=== PATIENT | male | born 1970 | race Caucasian/White ===

== ENCOUNTER 2024-08-12 08:14 | Day surgery (SDC) | payer OTHER, SELFPAY ==
[2024-07-28 08:56] VITALS: BMI 25.8
--- NOTE | 2024-08-12 07:00 | PM.HPGS ---
History of Present Illness History of Present Illness Chief complaint: Dupuytren's Contracture Right Small Finger Narrative: Patient seen and examined in pre-operative holding area. No interval change in medical history or symptoms. Patient recalls previous discussion of benefits and alternatives to procedure. Continues to desire to proceed with right small finger fasciectomy . Reviewed procedure, post-op expectations and risks including but not limited to bleeding, infection, injury to tendon/nerve/vessel, decreased hand function, stiffness, RSD, no change or worsening of symptoms, recurrence, incomplete release. I discussed the possible use of assistants and their participation in the case. Patient stated understanding and signed the consent form wishing to proceed. Review of Systems Review of Systems: All systems reviewed & are unremarkable except as noted in HPI and below PMFSH Social History Social History Smoking status: Never smoker Tobacco type: e-cigarettes/vaping Substance use: current Substance use type: marijuana Living arrangements: with family Spiritual care concerns: No Meds Home Medications and Allergies Home Medications ?Medication ?Instructions ?Recorded ?Confirmed ?Type clonazepam 0.5 mg tablet 0.5 mg PO .Q24 anxiety 07/28/24 08/12/24 History metoprolol succinate 50 mg 50 mg PO .q24 07/28/24 08/12/24 History tablet,extended release 24 hr Allergies Allergy/AdvReac Type Severity Reaction Status Date / Time No Known Allergies Allergy Verified 08/12/24 10:32 Exam Narrative: unchanged Assessment and Plan Assessment and plan (1) Dupuytren contracture: Code(s): M72.0 - Palmar fascial fibromatosis [Dupuytren] Status: Acute Assessment and Plan: cont as above
--- NOTE | 2024-08-12 07:01 | P.OP_ITS ---
Procedure Note - Detailed Date of Procedure 08/12/24 Pre-op Diagnosis Dupuytren's Contracture Right Small Finger Post-op Diagnosis Same Procedure Performed right small finger fasciectomy Surgeon Abdon Viveros MD Staple Laster joshua hernandez pa-c Anesthesia MAC Description of Procedure INFORMED CONSENT: The patient was seen and examined and marked in the pre-op area.? The patient signed the consent form. PROCEDURE IN DETAIL:The patient taken back to OR on the stretcher in supine pos ition. Time out performed with anesthesia, surgeon and staff agreeing on patient's name site and surgery to be performed SCDs were placed on the lower extremities and inflated. A tourniquet was placed on {right} upper extremity and antibiotics given IV After anesthesia administered sedation I injected {4}cc 1%lido and 0.5% marcaine plain at the operative site The?{right upper extremity}?was prepped and draped in sterile fashion the??{right upper extremity} was? exsanguinated with Esmarch bandage and tourniquet inflated to 250mmHg I proceeded with making a longitudinal incision over the right small finger cord from the palm past the PIP joint going obliquely across flexion creases through skin and dermis with a 15 blade scalpel. Littler scissors were used to spread through subcutaneous tissue identifying the cord near its origin in the palm and I proceeded with circumferential dissection of the cord. The cord was transected and then I proceeded with anterograde dissection of this cord until I was able to achieve full extension of the MP and PIP joint. The neurovascular bundle was identified and protected throughout the procedure. At the level of the PIP joint there was a Dupuytren's nodule that appeared to be in most encasing the radial digital nerve and resulted in subtotal excision of affected cord but did not affect the ability to achieve extension of the PIP joint. I irrigated with saline. Closure was done with 4-0 chromic. A dressing of xeroform, 4x4, judie, and an ulnar gutter splint in straight positionwas applied for patient safety, security, and comfort and secured with an gurwinder bandage after the tourniquet was let down noting the hand was warm and well perfused. The patient was then awaken from anesthesia and transferred to the recovery room in stable condition.? Complications - none EBL- 0cc Disposition - home in stable conditions joshua hernandez pa-c was essential for positioning, retraction, closure and dressing placement [facility] Billing Surgery - Charge Forward: Surgery Billing ([id number] for joshua)
--- OUTSIDE RECORDS SUMMARY | 2024-08-12 10:26 | XMS_ITS | Continuity of Care Document ---
Author Organization [facility] Address [address] [facility] [place] [address] Phone Care Team Providers Care Rejected Items Clerk Name Role Phone Romeo Richardson MD Unavailable Unavailable Allergies, Adverse Reactions, Alerts Substance Reaction Status Criticality No Known Allergies Active No Inform ation Medications Medication Instructions Dosage Effective Dates (start - stop) Status Comments Cimarron 5 mg-325 mg tablet take 1 tablet by oral route 2 times every day as needed for pain 1 tablet - Active avoid driving or operate machines Paxil 20 mg tablet take 1 tablet (20MG) by oral route every day 20 MG - Active buspirone 10 mg tablet take 1 tablet (10MG) by oral route 2 times every day 10 MG - Active avoid driving or operate machines Procedures Procedure Date OFFICE/OUTPATIENT VISIT, [facility] Advance Directives Directive Yes / No Effective Date File Name No Information Encounters Encounter Description Practice Location Reason(s) For Visit Diagnoses Date Provider Providers Copied on Encounter OFFICE/OUTPAT IENT VISIT, [facility], [address] [place], [place], [id number], tel:[phone] [facility] hand pain (chief complaint) anxiety (chief complaint) Pain in joint involving handGeneralized anxiety disorder [address] Walters. [address] [place], [id number] , [place]. tel:[phone] Family History Family Member Type Diagnosis Age At Onset Sister Problem (finding) Anxiety Problem (finding) Family history of hypot hyroidism Mother Problem (finding) Hypertension Problem (finding) No family history of An xiety Father Problem (finding) Unknown Disease Payers Payer name Insurance type Covered democrat ID Heather rios(s) No Information Social History Type Description Quantity Date Captured Comments Alcohol Use Details No Caffeine Use Details Unknown Tobacco Use Status No Information Smoking Status Current every day smoker Smoking Tobacco Use Details Cigarette: No Details Available Cigarette: 1 Packs per day Sex Male Vital Signs Date / Time: Height Weight BMI Pulse Rate Blood Pressure Temperature Respiratory Rate Body Surface Area Head Circumference BMI percentile Pulse Ox Inhaled Ox 3:26 PM 70.50 in 178.00 lbs 25.1 8 kg/m eter (2) 103 /min 128/72 mm[Hg] 98.1 F 18 /min Chief Complaint And Reason For Visit From encounter dated '08/27/2013 14:54'. hand pain (chief complaint) anxiety (chief complaint) Plan Of Treatment Date Type Action Status Goal Tobacco cessation counseling completed History Of Present Illness Encounter Date Complaint History Of Prese nt Illness No Information Instructions Date Instruction Additional Infor mation No Information Assessments Type Assessment Date No Information Mental Status Date Cognitive Assessment Orientation - [place] ed to time, place, person, situation.
--- OUTSIDE RECORDS SUMMARY | 2024-08-12 10:26 | XMS_ITS | Continuity of Care Document ---
[facility] Organization [facility] Address [address] [place] [address] [place] [address] Phone Care Team Providers Care Airfreight Loading Supervisor Name Role Phone Romeo Richardson MD Unavailable Unavailable Allergies, Adverse Reactions, Alerts Substance Reaction Status Criticality No Known Allergies Active No Inform ation Medications Medication Instructions Dosage Effective Dates (start - stop) Status Comments Klonopin 0.5 mg tablet take 1 tablet by oral route once per day PRN for anxiety as needed - Active avoid driving or operate machines Toprol XL 50 mg tablet,extended release take 1 tablet by oral route every day 50 MG - Active sildenafil 50 mg tablet take 1 tablet by oral route every day as directe as needed 50 MG - Active take one or ally about one hour before activity, max 1/24 hours Procedures Procedure Date PREV VISIT, EST, AGE 40-64 OFFICE/OUTPATIENT VISIT, EST OFFICE/OUTPATIENT VISIT, EST OFFICE/OUTPATIENT VISIT, EST OFFICE/OUTPATIENT VISIT, EST OFFICE/OUTPATIENT VISIT, EST OFFICE/OUTPATIENT VISIT, EST OFFICE/OUTPATIENT VISIT, EST OFFICE/OUTPATIENT VISIT, EST OFFICE/OUTPATIENT VISIT, EST OFFICE/OUTPATIENT VISIT, EST OFFICE/OUTPATIENT VISIT, EST OFFICE/OUTPATIENT VISIT, EST OFFICE/OUTPATIENT VISIT, EST OFFICE/OUTPATIENT VISIT, EST OFFICE/OUTPATIENT VISIT, EST OFFICE/OUTPATIENT VISIT, EST PREV VISIT, [facility], AGE 40-64 OFFICE/OUTPATIENT VISIT, [facility] Advance Directives Directive Yes / No Effective Date File Name No Information Encounters Encounter Description Practice Location Reason(s) For Visit Diagnoses Date Provider Providers Copied on Encounter PREV VISIT, [facility], AGE 40-64 [facility], [address], [place], [place], [address], [place] tel:[phone] [facility] physical (chief complaint) Encounter for general adult medical examination without abnormal findings 5 Dylan Walters. [address], [place], [place], [address] , [place]. tel:[phone] OFFICE/OUTPA TIENT VISIT, [facility], [address], [place], [place], [address], [place] tel:[phone] [facility] HTN (chief complaint) hand1 (chief complaint) anxiety1 (chief complaint) Generalized Anxiety DisorderDupuytren's contracture 5 Dylan Walters. [address], [place], [place], [address] , [place]. tel:[phone] OFFICE/OUTPA TIENT VISIT, [facility], [address], [place], [place], [address], [place] tel:[phone] [facility] anxiety1 (chief complaint) premature1 (chief complaint) Generalized Anxiety DisorderPremature ejaculation 5 Dylan Walters. [address], [place], [place], [address] , [place]. tel:[phone] OFFICE/OUTPA TIENT VISIT, [facility], [address], [place], [place], [address], [place] tel:[phone] [facility] lung nodule1 (chief complaint) premature1 (chief complaint) anxiety1 (chief complaint) HSV1 (chief complaint) finger1 (chief complaint) Solitary lung noduleGeneralized Anxiety DisorderHerpes simplex infectionDupuytren' s contracturePrematur e ejaculationEncounte r for screening for malignant neoplasm of colon 5 Dylan Walters. [address], [place], [place], [address] , [place]. tel:[phone] OFFICE/OUTPA TIENT VISIT, [facility], [address], [place], [place], [address], [place] tel:[phone] [facility] anxiety1 (chief complaint) Premature1 (chief complaint) HSVII (chief complaint) Generalized Anxiety DisorderPremature ejaculationTobacco useHerpes simplex infection Mar-3 0- 4 Dylan Walters. [address], [place], [place], [address] , [place]. tel:[phone] OFFICE/OUTPA TIENT VISIT, [facility], [address], [place], [place], [address], [place] tel:[phone] [facility] ED (chief complaint) anxiety1 (chief complaint) tobacco1 (chief complaint) Generalized Anxiety DisorderTobacco useMale erectile dysfunction, unspecified Mar-0 2 4 Dylan Walters. [address], [place], [place], [address] , [place]. tel:[phone] OFFICE/OUTPA TIENT VISIT, [facility], [address], [place], [place], [address], [place] tel:[phone] [facility] anxiety1 (chief complaint) Generalized Anxiety DisorderTobacco use Feb-0 4 Richardson Romeo. [address], [place], [place], [address] , [place]. tel:[phone] OFFICE/OUTPA TIENT VISIT, [facility], [address], [place], [place], [address], [place] tel:[phone] [facility] anxiety1 (chief complaint) ED (chief complaint) Generalized Anxiety DisorderMale erectile dysfunction, unspecified Jan-0 4 Dylan Walters. [address], [place], [place], [address] , [place]. tel:[phone] OFFICE/OUTPA TIENT VISIT, [facility], [address], [place], [place], [address], [place] tel:[phone] [facility] anxiety1 (chief complaint) Generalized Anxiety Disorder 4 Dylan Walters. [address], [place], [address] , [place]. [phone] OFFICE/OUTPA TIENT VISIT, [facility], [address], [place], [place], [address], [place] [phone] [facility] anxiety1 (chief complaint) ED (chief complaint) Generalized Anxiety DisorderMale erectile dysfunction, unspecified 4 Dylan Walters. [address], [place], [place], [address] , [place]. [phone] OFFICE/OUTPA TIENT VISIT, [facility], [address], [place], [place], [address], [place] tel:[phone] [facility] anxiety1 (chief complaint) Generalized Anxiety DisorderTobacco use 4 Dylan Walters. [address], [place], [place], [address] , [place]. [phone] OFFICE/OUTPA TIENT VISIT, [facility], [address], [place], [place], [address], [place] tel:[phone] [facility] anxiety1 (chief complaint) ED (chief complaint) Generalized Anxiety DisorderMale erectile dysfunction, unspecified 4 Dylan Walters. [address], [place], [place], [address] , [place]. [phone] OFFICE/OUTPA TIENT VISIT, [facility], [address], [place], [place], [address], [place] tel:[phone] [facility] HTN (chief complaint) HTN (chief complaint) ED (chief complaint) weight loss1 (chief complaint) Abnormal weight lossGeneralized Anxiety DisorderEssential (primary) hypertensionMale erectile dysfunction, unspecified 4 Dylan Walters. [address], [place], [place], [address] , [place]. tel:[phone] OFFICE/OUTPA TIENT VISIT, [facility], [address], [place], [place], [address], [place] tel:[phone] [facility] anxiety1 (chief complaint) ED (chief complaint) Generalized Anxiety DisorderMale erectile dysfunction, unspecified 4 Dylan Walters. [address], [place], [place], [address] , [place]. tel:[phone] OFFICE/OUTPA TIENT VISIT, [facility], [address], [place], [place], [address], [place] tel:[phone] [facility] anxiety1 (chief complaint) fatigue1 (chief complaint) tobacco1 (chief complaint) FatigueGeneralized Anxiety DisorderEncntr screen for malignant neoplasm of respiratory organsDecreased libido 4 Dylan Walters. [address], [place], [place], [address] , [place]. [phone] OFFICE/OUTPA TIENT VISIT, [facility], [address], [place], [place], [address], [place] tel:[phone] [facility] HTN (chief complaint) anxiety1 (chief complaint) fatigue1 (chief complaint) Essential (primary) hypertensionGeneral ized Anxiety DisorderFatigueDecr eased libido 4 Dylan Walters. [address], [place], [place], [address] , [place]. tel:[phone] OFFICE/OUTPA TIENT VISIT, [facility], [address], [place], [place], [address], [place] tel:[phone] [facility] glucose1 (chief complaint) HLP (chief complaint) HTN (chief complaint) anxiety1 (chief complaint) Generalized Anxiety DisorderEssential (primary) hypertensionHypergl ycemiaMixed hyperlipidemia 4 Richardson Romeo. [address], [place], [place], [address] , [place]. tel:[phone] PREV VISIT, NEW, AGE 40-64 [facility], [address], [place], [place], [address], [place] tel:[phone] [facility] physical (chief complaint) Encounter for general adult medical exam w abnormal findingsEssential (primary) hypertensionGeneral ized Anxiety DisorderDupuytren's contracture 3 Dylan Romeo. [address], [place], [place], [address] , [place]. tel:[phone] Family History Family Member Type Diagnosis Age At Onset Mother Problem Thyroid disorder Sister Problem Alive and well Father Problem Alive and well Mother Problem Hypertension Payers Payer name Insurance type Covered green party ID Heather rios(s) [facility] CI [id number] Social History Type Description Quantity Date Captured Comments Alcohol Use Details No Caffeine Use Details Unknown Tobacco Use Status Ex-cigarette smoker 025 Smoking Status Former smoker Sex Male Vital Signs Date / Time: Height Weight BMI Pulse Rate Blood Pressure Temperature Respiratory Rate Body Surface Area Head Circumference BMI percentile Pulse Ox Inhaled Ox 11:42 AM 71.00 in 180.60 lbs 25.1 9 kg/m eter (2) 57 /min 110/70 mm[Hg] 97.9 F 16 /min Chief Complaint And Reason For Visit From encounter dated '07/26/2024 11:22'. physical (chief complaint). Description: Pt needs annual physical. Pt has chronic anxiety Pt deniesany depression or any suicidal or homicidal thought Pt denies any crying spells pt has HTN. Pt takes toprol and his bp is ok Pt has ED Pt doing ok with sildenafil PRn .Pt has lung nodule. Pt denies any hemoptysis, sob or cough. pt c/o intermittent left side neck pain for several months Pt denies any injury pt denies any radiculopathy or any weakness or paresthesia. Plan Of Treatment Date Type Action Status Referral Ordered: COLONOSCOPY AND BIOPSY ordered Referral Ordered: Abdon Viveros -[facility] : Plastic Surgery (related to Dupuytren's contracture) ordered Referral Referred To: Abdon Viveros [address], [place], [phone] Ordered: Referrals: [facility] : Plastic Surgery. Abdon Viveros. Evaluate and treat ordered Referral Ordered: CT THORAX W/O DYE ordered Referral Ordered: SLEEP STUDY, ATTENDED ordered Appointment [facility] History Of Present Illness Encounter Date Complaint History Of Prese nt Illness physical Pt needs annual physical. Pt has chronic anxiety Pt denies any depression or any suicidal or homicidal thought Pt denies any crying spells pt has HTN. Pt takes toprol and his bp is ok Pt has ED Pt doing ok with sildenafil PRn .Pt has lung nodule. Pt denies any hemoptysis, sob or cough. pt c/o intermittent left side neck pain for several months Pt denies any injury pt denies any radiculopathy or any weakness or paresthesia. HTN Pt has HTN Pt ta kes toprol and his bp is ok hand1 Pt has Dupuytren contracture of right hand and he will do surgery soon by hand doctor anxiety1 Pt has chronic a nxiety Pt denies any depression or any suicidal or homicidal thought Pt denies any crying spells anxiety1 Pt has chronic m ild anxiety and depression Pt takes paxil and klonopin PRN and doing ok Pt denies any suicidal or homicidal thought Pt denies any crying spells premature1 Pt has premature ejaculation Pt only takes paxil PRn which works ok Pt also takes sildenafil PRN for ED .Pt denies any testicular pain, atrophy or nodule lung nodule1 Pt has lung nodu le. Pt denies any hemoptysis, sob or cough Pt has mild COPD. premature1 Pt has ED and pr emature ejaculation Pt is on paxil for the past month and he has not noticed much improvement of premature ejaculations. Pt has ED Pt is on sildenafil PRN anxiety1 pt has chronic a nxiety. Pt denies any depression or any suicidal or homicidal thought Pt denies any crying spells pt is doing ok with paxil and klonopin PRN HSV1 Pt does not have HSV II on lab. 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 Pt states that he has occasional break out and he had 2-3 times for the last two years Pt denies any acute breakout anxiety1 Pt has chronic a nxiety Pt denies any depression or any suicidal or homicidal thought Pt denies any crying spells Pt takes klonopin PRN and doing ok Premature1 Pt has ED and pr emature ejaculation Pt is interested in paxil. Pt denies any testicular pain, atrophy or nodule anxiety1 Pt has chronic a nxiety Pt denies any depression or any suicidal or homicidal thought Pt denies any crying spells Pt takes klonopin PRN and doing ok tobacco1 Pt has 30 pack y ear tobacco history Pt denies any hemoptysis. sob or cough ED Pt has ED Pt denise es sildenafil PRN and doing ok. pt needs it refilled. anxiety1 Pt has chronic a nxiety Pt denies any depression or any suicidal or homicidal thought Pt denies any crying spells Pt takes klonopin PRN and doing ok anxiety1 Pt has chronic a nxiety Pt denies any depression or any suicidal or homicidal thought Pt denies any crying spells Pt takes klonopin PRN and doing ok ED Pt has ED Pt doi ng ok with sildenafil PRn anxiety1 Pt has chronic a nxiety Pt denies any depression or any suicidal or homicidal thought Pt denies any crying spells Pt takes klonopin PRN and doing ok ED Pt has ED Pt doi ng ok with sildenafil PRN Pt denies any chest pain with sex anxiety1 Pt has chronic a nxiety Pt denies any depression or any suicidal or homicidal thought Pt denies any crying spells Pt takes klonopin PRN and doing ok anxiety1 Pt has chronic a nxiety Pt denies any depression or any suicidal or homicidal thought Pt denies any crying spells Pt takes klonopin PRN and doing ok ED Pt has ED Pt doi ng ok with sildenafil PRN. Pt denies any chest pain with sex Pt denies any side effects. Pt denies any testicular pain, atrophy or nodule .Pt has good libido anxiety1 Pt has chronic a nxiety Pt denies any depression or any suicidal or homicidal thought Pt denies any crying spells Pt takes klonopin PRN and doing ok weight loss1 Pt has been inte ntionally losing weight with diet and exercise. Pt denies any nausea, vomiting appetite loss, change of bowel blood in stool, early satiety, abd pain, etc HTN Pt has HTN Pt ta kes toprol and his bp is stable .Pt needs it refilled. ED Pt has ED Pt doi ng ok with sildenafil PRN. Pt denies any chest pain with sex Pt denies any side effects HTN Pt has chronic a nxiety Pt denies any depression or any suicidal or homicidal thought Pt denies any crying spells Pt takes klonopin PRN and doing ok ED Pt has ED Pt den ies any testicular pain, atrophy or nodule pt has good libido. Pt used to take sildenafil PRN which worked well Pt wants to try sildenafil PRn again anxiety1 Pt has chronic a nxiety Pt denies any depression or any suicidal or homicidal thought Pt denies any crying spells Pt takes klonopin PRN and doing ok tobacco1 Pt quit smoking 4 years ago He has 30 pack year tobacco history .Pt denies any hemoptysis, sob or cough. anxiety1 Pt has chronic a nxiety Pt denies any depression or any suicidal or homicidal thought Pt denies any crying spells Pt takes klonopin PRN and doing ok fatigue1 Pt feels chronic fatigue with decreasing stamina and decreasing muscle mass Pt has been working out recently but he is not getting the result. pt has slightly decreased libido with mild ED as well Pt denies any testicular pain, atrophy or nodule. pt does snore at night. pt had testosterone level done which was normal. Pt changed his mind and he deferred sleep study anxiety1 Pt has chronic a nxiety Pt denies any depression or any suicidal or homicidal thought Pt denies any crying spells Pt takes klonopin PRN and doing ok HTN Pt has HTN Pt ta kes toprol 50 mg daily and his bp is ok. fatigue1 Pt feels chronic fatigue with decreasing stamina and decreasing muscle mass Pt has been working out recently but he is not getting the result. pt has slightly decreased libido with mild ED as well Pt denies any testicular pain, atrophy or nodule. pt does snore at night. anxiety1 Pt has chronic a nxiety .Pt denies any depression or any suicidal or homicidal thought Pt denies any crying spells. Pt doing ok with klonopin PRN HTN Pt states tat he has been checking his bp at home on toprol 50 mg and has been around 130/70. He is not sure why his bp was elevated during his last office visit he has been taking toprol 50 mg instead of 100 HLP Pt has mildly hi gh tg Pt is not on any diet glucose1 Pt has mildly hi gh glucose .Pt denies any polyuria, polydipsia . physical Pt needs annual physical. pt has chronic anxiety. Pt denies any depression or any suicidal or homicidal thought .Pt denies any crying spells Pt used to take klonopin until his incarceration due to DUI two years ago Pt has been taking buspar while incarceration but it does not help his anxiety Pt also has HTN Pt is on toprol XL 50 mg daily but his bp is still high Pt states that he has a lot of anxiety. Pt denies any chest ashley or headache. Pt c/o hard nodule palm of right hand and puling his right small ring finger to a flexed position ,Pt denies any injury Pt denies any pain or numbness or weakness of the hand . Instructions Date Instruction Additional Infor mation No Information Assessments Type Assessment Date assessment Encounter for genera l adult medical examination without abnormal findings Mental Status Date Cognitive Assessment Orientation - [place] ed to time, place, person, situation.
[2024-08-12 10:42] VITALS: BP 123/81; PULSE 60; RESP 18; TEMP 36.8; O2SAT 100; BMI 24.6
--- NOTE | 2024-08-12 12:17 | WPDANESEPPF ---
Anes - Initial Pre Proc Eval Procedure: Operation Date: 08/12/24 12:00 Proposed Procedures p Fasciectomy Right Small Finger - Abdon Viveros MD Date/Time: 08/12/24 12:17 Surgeon: Abdon Viveros MD Pre Op Diagnosis: Dupuytren's Contracture Right Small Finger Patient Data Age: 54 Gender: M Height: 1.8 m Weight: 80.2 kg Last Vital Signs Temp 36.8 C 08/12/24 10:42 Pulse 60 08/12/24 10:42 Resp 18 08/12/24 10:42 BP 123/81 08/12/24 10:42 Pulse Ox 100 08/12/24 10:42 O2 Del Method Room Air 08/12/24 10:42 Allergies Allergy/AdvReac Type Severity Reaction Status Date / Time No Known Allergies Allergy Verified 08/12/24 10:32 Home Medications ?Medication ?Instructions ?Recorded ?Confirmed ?Type clonazepam 0.5 mg tablet 0.5 mg PO .Q24 anxiety 07/28/24 08/12/24 History metoprolol succinate 50 mg 50 mg PO .q24 07/28/24 08/12/24 History tablet,extended release 24 hr Patient hx anesthesia problems: none Family hx anesthesia problems: none Results Review: All pre-operative results and documents have been reviewed as part of the pre-operative evaluation. [facility] Social History Social History Smoking status: Never smoker Tobacco type: e-cigarettes/vaping Substance use: current Substance use type: marijuana Living arrangements: with family Spiritual care concerns: No Anes - Eval Final PreProcedure Day of Procedure 08/12/24 12:17 Patient weight: normal Heart: regular rate and rhythm Lungs: clear to auscultation Airway: Mallampati scale class II Neurological: alert and oriented Last oral intake: >/= 8 hours ASA classification: II Emergent: no Anesthetic plan: proceed Anesthesia type and monitoring: general GIVS and standard monitoring Results Review: All pre-operative results and documents have been reviewed as part of the pre-operative evaluation. Informed Consent: The patient's anesthetic plan and its attendant risks and benefits were discussed with the patient/family/POA. Questions were solicited and answers provided to the satisfaction of the patient/family/POA.
[2024-08-12] MEDS: LACTATED RINGERS 1,000 ML 30 ML IV CONT (12:22)
[2024-08-12] MEDS: ceFAZolin SODIUM 2 GM/20 ML SW SYRINGE IV PUSH (12:22)
[2024-08-12] MEDS: BUPivacaine HCL 0.5% 10 ML AMP 3 ML INFILTRATE (12:29)
[2024-08-12] MEDS: LIDOCAINE 1% LOCAL INJ 10 ML VIAL 3 ML INFILTRATE (12:29)
[2024-08-12 12:55] VITALS: BP 96/71; PULSE 61; RESP 16; O2SAT 99
[2024-08-12 13:05] VITALS: BP 107/77; PULSE 68; RESP 16; O2SAT 96
[2024-08-12 13:15] VITALS: BP 106/88; PULSE 65; RESP 17; O2SAT 97
--- NOTE | 2024-08-12 13:20 | WPDANESPN ---
Anes - Prog Note Post-Op Date/Time: 08/12/24 13:20 Cardiovascular status: normal Respiratory status: normal Airway patency: baseline Mental status: baseline Post-Op hydration status: normal Vital Signs: Last Vital Signs Temp 36.8 C 08/12/24 10:42 Pulse 68 08/12/24 13:05 Resp 16 08/12/24 13:05 BP 107/77 08/12/24 13:05 Pulse Ox 96 08/12/24 13:05 O2 Del Method Room Air 08/12/24 13:05 Pain Score (VAS): 0 I/O: Intake & Output 08/11/24 08/12/24 08/12/24 23:59 07:59 15:59 Intake Total 750 Balance 750 Patient Feedback: Patient satisfied with anesthetic care.
== END 2024-08-12 13:35 | disposition home or self-care (01) ==
PROVIDERS: PCP Emergency Medicine; Visit Provider Plastic Surgery
PROC: (CPT 26045; principal; 2024-08-12 12:00)
DX: M72.0 Palmar fascial fibromatosis [Dupuytren] (principal)
CPT/HCPCS: 26123

== ENCOUNTER 2024-08-12 08:31 | Outpatient (NON) | payer OTHER, SELFPAY ==
--- OUTSIDE RECORDS SUMMARY | 2024-08-13 08:33 | XMS_ITS | Continuity of Care Document ---
Author Organization [facility] [place] [facility] Address [address] [place] [address] Phone Care Team Providers Care Inclusion Specialist Name Role Phone Romeo Richardson MD Unavailable Unavailable Allergies, Adverse Reactions, Alerts Substance Reaction Status Criticality No Known Allergies Active No Inform ation Medications Medication Instructions Dosage Effective Dates (start - stop) Status Comments [place] 5 mg-325 mg tablet take 1 tablet [...] operate machines Procedures Procedure Date OFFICE/OUTPATIENT VISIT, [facility] Advance Directives Directive Yes / No Effective Date File Name No Information Encounters Encounter Description Practice Location Reason(s) For Visit Diagnoses Date Provider Providers Copied on Encounter OFFICE/OUTPAT IENT VISIT, [facility], [address] [place], [place], [id number], tel:[phone] [facility] hand pain (chief complaint) anxiety (chief complaint) Pain in joint involving handGeneralized anxiety disorder 4 Dylan Walters. [address] [place], [place], [address] , [place]. tel:[phone] Family History Family Member Type Diagnosis Age At Onset Sister Problem (finding) Anxiety Problem (finding) Family history of hypot hyroidism Mother Problem (finding) Hypertension Problem (finding) No family history of An xiety Father Problem (finding) Unknown Disease Payers Payer name Insurance type Covered republican ID Heather rios(s) No Information Social History [...] Mental Status Date Cognitive Assessment Orientation - [place] ed to time, place, person, situation.
--- OUTSIDE RECORDS SUMMARY | 2024-08-13 08:33 | XMS_ITS | Continuity of Care Document ---
Author Organization [facility] Address [address] [place] [address] [place] [address] Phone Care Team Providers Care Dough Machine Operator Name Role Phone Romeo Richardson MD Unavailable [...] VISIT, EST OFFICE/OUTPATIENT VISIT, EST PREV VISIT, [facility], AGE 40-64 OFFICE/OUTPATIENT VISIT, [facility] Advance Directives Directive Yes / No Effective Date File Name No Information Encounters Encounter Description Practice Location Reason(s) For Visit Diagnoses Date Provider Providers Copied on Encounter PREV VISIT, [facility], AGE 40-64 [facility], [address], [place], [place], [address], [place] tel:[phone] [facility] physical (chief complaint) Encounter for general adult medical examination without abnormal findings 5 Dylan Walters. [address], [place], [place], [address] , [place]. tel:[phone] OFFICE/OUTPA TIENT VISIT, [facility], [address], [place], [place], [address], [place] tel:[phone] [facility] HTN (chief complaint) hand1 (chief complaint) anxiety1 (chief complaint) Generalized Anxiety DisorderDupuytren's contracture 5 Dylan Walters. [address], [place], [place], [address] , [place]. tel:[phone] OFFICE/OUTPA TIENT VISIT, [facility], [address], [place], [place], [address], [place] tel:[phone] [facility] anxiety1 (chief complaint) premature1 (chief complaint) Generalized Anxiety DisorderPremature ejaculation 5 Dylan Walters. [address], [place], [place], [address] , [place]. tel:[phone] OFFICE/OUTPA TIENT VISIT, [facility], [address], [place], [place], [address], [place] tel:[phone] [facility] lung nodule1 (chief complaint) premature1 (chief complaint) anxiety1 (chief complaint) HSV1 (chief complaint) finger1 (chief complaint) Solitary lung noduleGeneralized Anxiety DisorderHerpes simplex infectionDupuytren' s contracturePrematur e ejaculationEncounte r for screening for malignant neoplasm of colon 5 Dylan Walters. [address], [place], [place], [address] , [place]. tel:[phone] OFFICE/OUTPA TIENT VISIT, [facility], [address], [place], [place], [address], [place] tel:[phone] [facility] anxiety1 (chief complaint) Premature1 (chief complaint) HSVII (chief complaint) Generalized Anxiety DisorderPremature ejaculationTobacco useHerpes simplex infection Mar-3 0- 4 Dylan Walters. [address], [place], [place], [address] , [place]. tel:[phone] OFFICE/OUTPA TIENT VISIT, [facility], [address], [place], [place], [address], [place] tel:[phone] [facility] ED (chief complaint) anxiety1 (chief complaint) tobacco1 (chief complaint) Generalized Anxiety DisorderTobacco useMale erectile dysfunction, unspecified Mar-0 2 4 Dylan Walters. [address], [place], [place], [address] , [place]. tel:[phone] OFFICE/OUTPA TIENT VISIT, [facility], [address], [place], [place], [address], [place] tel:[phone] [facility] anxiety1 (chief complaint) Generalized Anxiety DisorderTobacco use Feb-0 4 Richardson Romeo. [address], [place], [place], [address] , [place]. tel:[phone] OFFICE/OUTPA TIENT VISIT, [facility], [address], [place], [place], [address], [place] tel:[phone] [facility] anxiety1 (chief complaint) ED (chief complaint) Generalized Anxiety DisorderMale erectile dysfunction, unspecified Jan-0 4 Dylan Walters. [address], [place], [place], [address] , [place]. tel:[phone] OFFICE/OUTPA TIENT VISIT, [facility], [address], [place], [place], [address], [place] tel:[phone] [facility] anxiety1 (chief complaint) Generalized Anxiety Disorder 4 Dylan Walters. [address], [place], [place], [address] , [place]. [phone] OFFICE/OUTPA TIENT VISIT, [facility], [address], [place], [place], [address], [place] [phone] [facility] anxiety1 (chief complaint) ED (chief complaint) Generalized Anxiety DisorderMale erectile dysfunction, unspecified 4 Dylan Walters. [address], [place], [place], [address] , [place]. [phone] OFFICE/OUTPA TIENT VISIT, [facility], [address], [place], [place], [address], [place] tel:[phone] [facility] anxiety1 (chief complaint) Generalized Anxiety DisorderTobacco use 4 Dylan Walters. [address], [place], [place], [address] , [place]. [phone] OFFICE/OUTPA TIENT VISIT, [facility], [address], [place], [place], [address], [place] tel:[phone] [facility] anxiety1 (chief complaint) ED (chief complaint) Generalized Anxiety DisorderMale erectile dysfunction, unspecified 4 Dylan Walters. [address], [place], [place], [address] , [place]. [phone] OFFICE/OUTPA TIENT VISIT, [facility], [address], [place], [place], [address], [place] tel:[phone] [facility] HTN (chief complaint) HTN (chief complaint) ED (chief complaint) weight loss1 (chief complaint) Abnormal weight lossGeneralized Anxiety DisorderEssential (primary) hypertensionMale erectile dysfunction, unspecified 4 Dylan Walters. [address], [place], [place], [address] , [place]. tel:[phone] OFFICE/OUTPA TIENT VISIT, [facility], [address], [place], [place], [address], [place] tel:[phone] [facility] anxiety1 (chief complaint) ED (chief complaint) Generalized Anxiety DisorderMale erectile dysfunction, unspecified 4 Dylan Walters. [address], [place], [place], [address] , [place]. tel:[phone] OFFICE/OUTPA TIENT VISIT, [facility], [address], [place], [place], [address], [place] tel:[phone] [facility] anxiety1 (chief complaint) fatigue1 (chief complaint) tobacco1 (chief complaint) FatigueGeneralized Anxiety DisorderEncntr screen for malignant neoplasm of respiratory organsDecreased libido 4 Dylan Walters. [address], [place], [place], [address] , [place]. [phone] OFFICE/OUTPA TIENT VISIT, [facility], [address], [place], [place], [address], [place] tel:[phone] [facility] HTN (chief complaint) anxiety1 (chief complaint) fatigue1 (chief complaint) Essential (primary) hypertensionGeneral ized Anxiety DisorderFatigueDecr eased libido 4 Dylan Walters. [address], [place], [place], [address] , [place]. tel:[phone] OFFICE/OUTPA TIENT VISIT, [facility], [address], [place], [place], [address], [place] tel:[phone] [facility] glucose1 (chief complaint) HLP (chief complaint) HTN (chief complaint) anxiety1 (chief complaint) Generalized Anxiety DisorderEssential (primary) hypertensionHypergl ycemiaMixed hyperlipidemia 4 Richardson Romeo. [address], [place], [place], [address] , [place]. [phone] PREV VISIT, NEW, AGE 40-64 [facility], [address], [place], [place], [address], [place] tel:[phone] [facility] physical (chief complaint) Encounter for general adult medical exam w abnormal findingsEssential (primary) hypertensionGeneral ized Anxiety DisorderDupuytren's contracture 3 Dylan Romeo. [address], [place], [place], [address] , [place]. [phone] Family History Family Member Type Diagnosis Age At Onset Mother Problem Thyroid disorder Sister Problem Alive and well Father Problem Alive and well Mother Problem Hypertension Payers Payer name Insurance type Covered democrat ID Heather rios(s) 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 Pt states that he has occasional break out and he had 2-3 times for the last two years Pt denies any acute breakout Premature1 Pt has ED and pr emature ejaculation Pt is interested in paxil. Pt denies any testicular pain, atrophy or nodule ED Pt has ED Pt denise es sildenafil PRN and doing ok. pt needs it refilled. tobacco1 Pt has 30 pack y ear tobacco history Pt denies any hemoptysis. sob or cough anxiety1 Pt has chronic a nxiety Pt [...] atrophy or nodule .Pt has good libido HTN Pt has chronic a nxiety Pt denies any depression or any suicidal or homicidal thought Pt denies any crying spells Pt takes klonopin PRN and doing ok ED Pt has ED Pt doi ng ok with sildenafil PRN. Pt denies any chest pain with sex Pt denies any side effects HTN Pt has HTN Pt ta kes toprol and his bp is stable .Pt needs it refilled. weight loss1 Pt has been inte ntionally losing weight with diet and exercise. Pt denies any nausea, vomiting appetite loss, change of bowel blood in stool, early satiety, abd pain, etc anxiety1 Pt has chronic a nxiety Pt [...] .Pt denies any hemoptysis, sob or cough. fatigue1 Pt feels chronic fatigue with decreasing [...] his mind and he deferred sleep study HTN Pt has HTN Pt ta kes toprol 50 mg daily and his bp is ok. anxiety1 Pt has chronic a nxiety Pt [...] or nodule. pt does snore at night. glucose1 Pt has mildly hi gh glucose .Pt denies any polyuria, polydipsia . HLP Pt has mildly hi gh tg Pt is not on any diet HTN Pt states tat he has been checking his bp at home on toprol 50 mg and has been around 130/70. He is not sure why his bp was elevated during his last office visit he has been taking toprol 50 mg instead of 100 anxiety1 Pt has chronic a nxiety .Pt denies any depression or any suicidal or homicidal thought Pt denies any crying spells. Pt doing ok with klonopin PRN physical Pt needs annual physical. pt has [...] Mental Status Date Cognitive Assessment Orientation - [place] ed to time, place, person, situation.
--- OUTSIDE RECORDS SUMMARY | 2024-08-13 08:33 | XMS_ITS | Continuity of Care Document ---
Author Organization [facility] Address [address] [place] [address] Phone Care Team Providers Care Incoming Freight Clerk Name Role Phone Romeo Richardson MD Unavailable Unavailable Allergies, Adverse Reactions, Alerts Substance Reaction Status Criticality No Known Allergies Active No Inform ation Medications Medication Instructions Dosage Effective Dates (start - stop) Status Comments sildenafil 50 mg tablet take 1 tablet by oral route every day as directe as needed 50 MG - Active take one or ally about one hour before activity, max /24 hours Toprol XL 50 mg tablet,extended release take 1 tablet by oral route every day 50 MG - Active Klonopin 0.5 mg tablet take 1 tablet by oral route once per day PRN for anxiety as needed - Active avoid driving or operate machines Procedures Procedure Date PREV VISIT, EST, AGE 40-64 OFFICE/OUTPATIENT VISIT, EST OFFICE/OUTPATIENT VISIT, EST OFFICE/OUTPATIENT VISIT, EST OFFICE/OUTPATIENT VISIT, EST OFFICE/OUTPATIENT VISIT, EST OFFICE/OUTPATIENT VISIT, EST OFFICE/OUTPATIENT VISIT, EST OFFICE/OUTPATIENT VISIT, EST OFFICE/OUTPATIENT VISIT, EST OFFICE/OUTPATIENT VISIT, EST OFFICE/OUTPATIENT VISIT, EST OFFICE/OUTPATIENT VISIT, EST OFFICE/OUTPATIENT VISIT, EST OFFICE/OUTPATIENT VISIT, EST OFFICE/OUTPATIENT VISIT, EST OFFICE/OUTPATIENT VISIT, EST PREV VISIT, [facility], AGE 40-64 OFFICE/OUTPATIENT VISIT, [facility] Advance Directives Directive Yes / No Effective Date File Name No Information Encounters Encounter Description Practice Location Reason(s) For Visit Diagnoses Date Provider Providers Copied on Encounter PREV VISIT, [facility], AGE 40-64 [facility], [address], [place], [place], [address], [place] tel:[phone] [facility] physical (chief complaint) Encounter for general adult medical examination without abnormal findings 5 Dylan Walters. [address], [place], [place], [address] , [place]. tel:[phone] OFFICE/OUTPA TIENT VISIT, [facility], [address], [place], [place], [address], [place] tel:[phone] [facility] HTN (chief complaint) hand1 (chief complaint) anxiety1 (chief complaint) Generalized Anxiety DisorderDupuytren's contracture 5 Dylan Walters. [address], [place], [place], [address] , [place]. tel:[phone] OFFICE/OUTPA TIENT VISIT, [facility], [address], [place], [place], [address], [place] tel:[phone] [facility] anxiety1 (chief complaint) premature1 (chief complaint) Generalized Anxiety DisorderPremature ejaculation 5 Dylan Walters. [address], [place], [place], [address] , [place]. tel:[phone] OFFICE/OUTPA TIENT VISIT, [facility], [address], [place], [place], [address], [place] tel:[phone] [facility] lung nodule1 (chief complaint) premature1 (chief complaint) anxiety1 (chief complaint) HSV1 (chief complaint) finger1 (chief complaint) Solitary lung noduleGeneralized Anxiety DisorderHerpes simplex infectionDupuytren' s contracturePrematur e ejaculationEncounte r for screening for malignant neoplasm of colon 5 Dylan Walters. [address], [place], [place], [address] , [place]. tel:[phone] OFFICE/OUTPA TIENT VISIT, [facility], [address], [place], [place], [address], [place] tel:[phone] [facility] anxiety1 (chief complaint) Premature1 (chief complaint) HSVII (chief complaint) Generalized Anxiety DisorderPremature ejaculationTobacco useHerpes simplex infection Mar-3 0- 4 Dylan Walters. [address], [place], [place], [address] , [place]. tel:[phone] OFFICE/OUTPA TIENT VISIT, [facility], [address], [place], [place], [address], [place] tel:[phone] [facility] ED (chief complaint) anxiety1 (chief complaint) tobacco1 (chief complaint) Generalized Anxiety DisorderTobacco useMale erectile dysfunction, unspecified Mar-0 2 4 Dylan Walters. [address], [place], [place], [address] , [place]. tel:[phone] OFFICE/OUTPA TIENT VISIT, [facility], [address], [place], [place], [address], [place] tel:[phone] [facility] anxiety1 (chief complaint) Generalized Anxiety DisorderTobacco use Feb-0 4 Richardson Romeo. [address], [place], [place], [address] , [place]. tel:[phone] OFFICE/OUTPA TIENT VISIT, [facility], [address], [place], [address], [place] tel:[phone] [facility] anxiety1 (chief complaint) ED (chief complaint) Generalized Anxiety DisorderMale erectile dysfunction, unspecified Jan-0 4 Dylan Walters. [address], [place], [place], [address] , [place]. tel:[phone] OFFICE/OUTPA TIENT VISIT, [facility], [address], [place], [place], [address], [place] tel:[phone] [facility] anxiety1 (chief complaint) Generalized Anxiety Disorder 4 Dylan Walters. [address], [place], [place], [address] , [place]. [phone] OFFICE/OUTPA TIENT VISIT, [facility], [address], [place], [place], [address], [place] [phone] [facility] anxiety1 (chief complaint) ED (chief complaint) Generalized Anxiety DisorderMale erectile dysfunction, unspecified 4 Dylan aWlters. [address], [place], [place], [address] , [place]. [phone] OFFICE/OUTPA TIENT VISIT, [facility], [address], [place], [address], [place] tel:[phone] [facility] anxiety1 (chief complaint) Generalized Anxiety DisorderTobacco use 4 Dylan Walters. [address], [place], [place], [address] , [place]. [phone] OFFICE/OUTPA TIENT VISIT, [facility], [address], [place], [address], [place] tel:[phone] [facility] anxiety1 (chief complaint) ED (chief complaint) Generalized Anxiety DisorderMale erectile dysfunction, unspecified 4 Dylan Walters. [address], [place], [address] , [place]. [phone] OFFICE/OUTPA TIENT VISIT, [facility], [address], [place], [address], [place] tel:[phone] [facility] HTN (chief complaint) HTN (chief complaint) ED (chief complaint) weight loss1 (chief complaint) Abnormal weight lossGeneralized Anxiety DisorderEssential (primary) hypertensionMale erectile dysfunction, unspecified 4 Dylan Walters. [address], [place], [place], [address] , [place]. tel:[phone] OFFICE/OUTPA TIENT VISIT, [facility], [address], [place], [place], [address], [place] tel:[phone] [facility] anxiety1 (chief complaint) ED (chief complaint) Generalized Anxiety DisorderMale erectile dysfunction, unspecified 4 Dylan Walters. [address], [place], [place], [address] , [place]. tel:[phone] OFFICE/OUTPA TIENT VISIT, [facility], [address], [place], [place], [address], [place] tel:[phone] [facility] anxiety1 (chief complaint) fatigue1 (chief complaint) tobacco1 (chief complaint) FatigueGeneralized Anxiety DisorderEncntr screen for malignant neoplasm of respiratory organsDecreased libido 4 Dylan Walters. [address], [place], [address] , [place]. [phone] OFFICE/OUTPA TIENT VISIT, [facility], [address], [place], [place], [address], [place] tel:[phone] [facility] HTN (chief complaint) anxiety1 (chief complaint) fatigue1 (chief complaint) Essential (primary) hypertensionGeneral ized Anxiety DisorderFatigueDecr eased libido 4 Dylan Walters. [address], [place], [place], [address] , [place]. tel:[phone] OFFICE/OUTPA TIENT VISIT, [facility], [address], [place], [address], [place] tel:[phone] [facility] glucose1 (chief complaint) HLP (chief complaint) HTN (chief complaint) anxiety1 (chief complaint) Generalized Anxiety DisorderEssential (primary) hypertensionHypergl ycemiaMixed hyperlipidemia 4 Richardson Romeo. [address], [place], [place], [address] , [place]. tel:[phone] PREV VISIT, NEW, AGE 40-64 [facility], [address], [place], [place], [address], [place] tel:[phone] [facility] physical (chief complaint) Encounter for general adult medical exam w abnormal findingsEssential (primary) hypertensionGeneral ized Anxiety DisorderDupuytren's contracture 3 Dylan Romeo. [address], [place], [place], [address] , [place]. tel:[phone] Family History Family Member Type Diagnosis Age At Onset Mother Problem Thyroid disorder Sister Problem Alive and well Father Problem Alive and well Mother Problem Hypertension Payers Payer name Insurance type Covered green party ID Heather rios(s) [facility] CI [id number] Social History Type Description Quantity Date Captured [...] ordered Referral Referred To: Abdon Viveros [address] [place], [place], [phone] Ordered: Referrals: Allopathic & Osteopathic Physicians : [...] tg Pt is not on any diet anxiety1 Pt has chronic a nxiety .Pt [...] taking toprol 50 mg instead of 100 physical Pt needs annual physical. pt has [...] Mental Status Date Cognitive Assessment Orientation - [place] ed to time, place, person, situation.
--- OUTSIDE RECORDS SUMMARY | 2024-08-13 08:33 | XMS_ITS | Continuity of Care Document ---
Author Organization [facility] Address [address] [facility], [place] [address] Phone Care Team Providers Care Manager Hi Name Role Phone Romeo Richardson MD Unavailable Unavailable Allergies, Adverse Reactions, Alerts Substance Reaction Status Criticality No Known Allergies Active No Inform ation Medications Medication Instructions Dosage Effective Dates (start - stop) Status Comments Mission 5 mg-325 mg tablet take 1 tablet [...] operate machines Procedures Procedure Date OFFICE/OUTPATIENT VISIT, [facility] Advance Directives Directive Yes / No Effective Date File Name No Information Encounters Encounter Description Practice Location Reason(s) For Visit Diagnoses Date Provider Providers Copied on Encounter OFFICE/OUTPAT IENT VISIT, [facility], [address] [place], [address], tel:[phone] [facility] hand pain (chief complaint) anxiety (chief complaint) Pain in joint involving handGeneralized anxiety disorder 4 Dylan Walters. [address] [place], [address] , [place]. tel:[phone] Family History Family Member Type Diagnosis Age [...] Mental Status Date Cognitive Assessment Orientation - [place] ed to time, place, person, situation."
== END 2024-08-12 08:32 | disposition home or self-care (01) ==
PROVIDERS: PCP Emergency Medicine; Visit Provider Plastic Surgery
DX: M72.0 Palmar fascial fibromatosis [Dupuytren] (principal)
CPT/HCPCS: 88304

== ENCOUNTER 2025-03-18 02:04 | Day surgery (SDC) | payer OTHER, SELFPAY ==
[2025-02-25 10:31] VITALS: BMI 24.4
--- OUTSIDE RECORDS SUMMARY | 2025-03-18 02:07 | XMS_ITS | Clinical Summary ---
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 Romeo Richardson MD Primary Care Provider Allergies No known active allergies Social History Tobacco Use Types Packs/Day Years Used Date Smoking Tobacco: Never Assessed Sex and Gender Information Value Date Recorded Sex Assigned at Not on file Legal Sex Male 8:51 AM [employer] Gender Identity Not on file Sexual Orientation Not on file Last Filed Vital Signs Vital Sign Reading Time Taken Comments Blood Pressure - - Pulse - - Temperature - - Respiratory Rate - - Oxygen Saturation - - Inhaled Oxygen Concentration - - Weight 83.9 kg (185 lb) 11/17/2024 4:39 PM CDT Height 180.3 cm (5' 11) 11/17/2024 4:39 PM CDT Body Mass Index 25.8 11/17/2024 4:39 PM CDT Plan of Treatment Health Maintenance Due Date Last Done Comments Colon Cancer Screening-Colonoscopy 1972 Depression Screening 1972 Hepatitis C Screening 1972 Prostate Cancer Screening-PSA 1972 Hepatitis B Screening 02/24/1990 Regular Well Visit/Exam 18-64 02/24/1990 Zoster Vaccine (1 of 2) 02/24/2022 Influenza Vaccine (#1) 2024 Lung Cancer Screening 11/18/2025 11/17/2024 , 03/29/2024 DTaP/Tdap/Td Vaccine (2 - Td or Tdap) 05/14/2028 05/14/2018 Pneumococcal vaccine <65 Aged Out No longer eligible based on patient's age to complete this topic Procedures Procedure Name Priority Date/Time Associated Diagnosis Comments CT CHEST WO CONTRAST F/U LUNG SCREEN PROTOCOL Schedule Routine, Read Routine (OP Routine) 11/17/2024 4:39 PM CDT Solitary pulmonary nodule from Last 3 Months or Most Recently Relevant to Health Maintenance Results * CT Chest WO Contrast F/U Lung Screen Protocol (11/17/2024 4:39 PM CDT) Anatomical Region Laterality Modality Chest N/A Computed Tomogra phy 11/25/2024 2:42 PM CDT Narrative 11/25/2024 2:47 PM CDT EXAM DESCRIPTION: CT CHEST WO CONTRAST F/U LUNG SCREEN PROTOCOL REASON FOR STUDY: Screening CT of the chest in a current smoker with a 30 pack year smoking history. Additional history: None. TECHNIQUE: Low dose CT scan of the chest was performed without intravenous contrast using helical scanning technique. The exam extends from the lung apices through the lung bases. Automatic exposure control was used as a dose optimization technique. NOTE: This study was performed for the specific purposes of lung cancer screening and is not an alternative to diagnostic chest CT. RADIATION DOSE: CT dose index volume (CTDIvol) = 1.22 mGy COMPARISON: 03/29/2024 FINDINGS: SMOKING RELATED LUNG DISEASE: Mild emphysematous change is again seen. There is some associated central bronchiectasis with bronchial wall thickening. There is minimal apical parenchymal pleural thickening. LUNG NODULES: An oblong 1.4 cm nodule along the pleura between the right middle and lower lobes (image 171) is stable. A 6 mm pleural-based nodule medially in the right upper lobe (image 181) is unchanged. 2 small pleural-based nodules between the left upper and lower lobes (image 141) measuring up to 3 mm are stable. There are additional scattered pulmonary micronodules (<3 mm). CORONARY ARTERY CALCIFICATION: Present OTHER: The heart is normal in size. No suspicious mediastinal or hilar lymphadenopathy seen. No pneumothorax or pleural effusion is identified. IMPRESSION: 1. Multiple pulmonary nodules which are stable or smaller. Lung-RADS category 2: Benign appearance or behavior. Recommendation: Low dose Screening CT of chest in 12 months. THIS IS AN ELECTRONICALLY VERIFIED FINAL REPORT 11/25/2024 2:47 PM - Electronically signed by Bradley Shepard M.D. BS: BS Report ID: [id number] Reading Location: [id number] Procedure Note Bradley Shepard MD - 11/25/2024 EXAM DESCRIPTION: CT CHEST WO CONTRAST F/U LUNG SCREEN PROTOCOL REASON FOR STUDY: Screening CT of the chest in a current smoker with a30 pack year smoking history. Additional history: None. TECHNIQUE: Low dose CT scan of the chest was performed without intravenous contrast using helical scanning technique. The exam extends from the lung apices through the lung bases. Automatic exposure control was used as adose optimization technique. NOTE: This study was performed for the specific purposes of lung cancer screening and is not an alternative to diagnostic chest CT. RADIATION DOSE: CT dose index volume (CTDIvol) = 1.22 mGy COMPARISON: 03/29/2024 FINDINGS: SMOKING RELATED LUNG DISEASE: Mild emphysematous change is again seen. There is some associated central bronchiectasis with bronchial wall thickening. There is minimal apical parenchymal pleural thickening. LUNG NODULES: An oblong 1.4 cm nodule along the pleura between the right middle and lower lobes (image 171) is stable. A 6 mm pleural-basednodule medially in the right upper lobe (image 181) is unchanged. 2 small pleural-based nodules between the left upper and lower lobes (image 141) measuring up to 3 mm are stable. There are additional scattered pulmonary micronodules (<3 mm). CORONARY ARTERY CALCIFICATION: Present OTHER: The heart is normal in size. No suspicious mediastinal or hilar lymphadenopathy seen. No pneumothorax or pleural effusion is identified. IMPRESSION: 1. Multiple pulmonary nodules which are stable or smaller. Lung-RADS category 2: Benign appearance or behavior. Recommendation: Low dose Screening CT of chest in 12 months. THIS IS AN ELECTRONICALLY VERIFIED FINAL REPORT 11/25/2024 2:47 PM - Electronically signed by Bradley Shepard M.D. BS: BS Report ID: [id number] Reading Location: [id number] Romeo Richardson MD IMG CT PROCEDURES Final Resu lt from Last 3 Months or Most Recently Relevant to Health Maintenance Insurance [facility] Care Teams Washing Machine Mechanic Relationship Specialty Start Date End Date Romeo Richardson MD [address] [address] PCP - General Family Medicine 10/13/23
[2025-03-18 07:04] VITALS: BP 114/75; PULSE 70; RESP 18; TEMP 36.4; O2SAT 99; BMI 23.8
[2025-03-18] MEDS: LACTATED RINGERS 1,000 ML 150 ML IV CONT (07:07)
--- NOTE | 2025-03-18 07:19 | P.PNAN_ITS ---
Anes - Initial Pre Proc Eval Procedure: Operation Date: 03/18/25 08:00 Proposed Procedures p Screening Colonoscopy - Shayan Keller MD Date/Time: 03/18/25 07:19 Surgeon: Shayan Keller MD Pre Op Diagnosis: Screening Patient Data Age: 55 Gender: M Height: 1.78 m Weight: 75.2 kg Last Vital Signs Temp 36.4 C 03/18/25 07:04 Pulse 70 03/18/25 07:04 Resp 18 03/18/25 07:04 BP 114/75 03/18/25 07:04 Pulse Ox 99 03/18/25 07:04 O2 Del Method Room Air 03/18/25 07:04 Allergies Allergy/AdvReac Type Severity Reaction Status Date / Time No Known Allergies Allergy Verified 02/25/25 10:30 Home Medications ?Medication ?Instructions ?Recorded ?Confirmed ?Type clonazepam 0.5 mg tablet 0.5 mg PO .Q24 anxiety 07/2803/18/25 History metoprolol succinate 50 mg 50 mg PO .q24 07/28/2403/07 History tablet,extended release 24 hr Patient hx anesthesia problems: none Family hx anesthesia problems: none Results Review: All pre-operative results and documents have been reviewed as part of the pre- operative evaluation. [facility] Past Medical History Medical History (Updated 03/18/25 @ 07:19 by Sourav Parker MD) HTN (hypertension) Social History Social History Smoking status: Never smoker Tobacco type: cigarettes and e-cigarettes/vaping Substance use: current Substance use type: marijuana Other substance usage details: daily Living arrangements: with family Spiritual care concerns: No Anes - Eval Final PreProcedure Day of Procedure 03/18/25 07:19 Patient weight: normal Heart: regular rate and rhythm Lungs: clear to auscultation Airway: Mallampati scale class II Neurological: alert and oriented Last oral intake: >/= 8 hours ASA classification: II Emergent: no Anesthetic plan: proceed Anesthesia type and monitoring: general GIVS and standard monitoring Results Review: All pre-operative results and documents have been reviewed as part of the pre- operative evaluation. Informed Consent: The patient's anesthetic plan and its attendant risks and benefits were discussed with the patient/family/POA. Questions were solicited and answers provided to the satisfaction of the patient/family/POA.
--- NOTE | 2025-03-18 07:45 | PM.HPGS ---
History of Present Illness History of Present Illness Consent: Risks, benefits, and alternatives have been discussed and questions answered. Patient agrees to proceed with procedure. Chief complaint: Screening Narrative: Niels Edge is a 55 year old male here for first screening colonoscopy Review of Systems Review of Systems: All systems reviewed & are unremarkable except as noted in HPI and below PMFSH Past Medical History Medical History (Updated 03/18/25 @ 07:48 by Shayan Keller MD) Colon cancer screening HTN (hypertension) Social History Social History Smoking status: Never smoker Tobacco type: cigarettes and e-cigarettes/vaping Substance use: current Substance use type: marijuana Other substance usage details: daily Living arrangements: with family Spiritual care concerns: No Meds Home Medications and Allergies Home Medications ?Medication ?Instructions ?Recorded ?Confirmed ?Type clonazepam 0.5 mg tablet 0.5 mg PO .Q24 anxiety 07/28/24 03/18/25 History metoprolol succinate 50 mg 50 mg PO .q24 07/28/24 03/18/25 History tablet,extended release 24 hr Allergies Allergy/AdvReac Type Severity Reaction Status Date / Time No Known Allergies Allergy Verified 02/25/25 10:30 Vital Signs Vital Signs - 24 hr 03/18/25 07:04 Temperature 97.6 F Pulse Rate 70 Respiratory Rate 18 Blood Pressure 114/75 Pulse Oximetry 99 Oxygen Delivery Room Air Exam Const: General: comfortable and no acute distress HENMT: Face/Nose/Sinus: Normal nares present Eyes: General: appearance normal, both eyes and all related structures Neck: Neck: no JVD Resp: Auscultation: clear to auscultation bilaterally Cardio: Rate: regular rate Rhythm: regular rhythm GI: Inspection: non-distended GI Palp: Yes Soft to palpation Skin: General skin exam: normal color Extrem: General: normal to inspection Psych: Mental Status: mental status grossly normal Assessment and Plan Assessment and plan (1) Colon cancer screening: Code(s): Z12.11 - Encounter for screening for malignant neoplasm of colon Status: Acute Assessment and Plan: colonoscopy
[2025-03-18 08:06] VITALS: BP 88/56; PULSE 66; RESP 17; O2SAT 97
[2025-03-18 08:16] VITALS: BP 89/61; PULSE 69; RESP 14; O2SAT 97
[2025-03-18 08:26] VITALS: BP 109/79; PULSE 68; RESP 19; O2SAT 97
== END 2025-03-18 08:38 | disposition home or self-care (01) ==
PROVIDERS: PCP Emergency Medicine; Referring Provider Emergency Medicine; Visit Provider Internal Medicine Gastroenterology
PROC: 0DJD8ZZ Inspection of Lower Intestinal Tract, Via Natural or Artificial Opening Endoscopic (ICD-10-PCS; CPT 45378; principal; 2025-03-18 08:00)
DX: Z12.11 Encounter for screening for malignant neoplasm of colon (principal); K64.8 Other hemorrhoids; I10 Essential (primary) hypertension; F12.90 Cannabis use, unspecified, uncomplicated; Z87.891 Personal history of nicotine dependence
CPT/HCPCS: 45378; J2003; J2704; J7120